=== PATIENT | male | born 1995 | race Caucasian/White ===

== ENCOUNTER 2021-12-17 22:11 | Day surgery (SDC) | payer OTHER ==
[2021-12-17] MEDS ORDERED: GLUCAGON 1 MG/ML VIAL IM STA (23:12)
--- NOTE | 2021-12-17 23:54 | ED Physician Documentation ---
History of Present Illness - Stated complaint Stated Complaint: THROAT PX/ESOPHAGUS PX - Chief complaint Chief Complaint: Heent - Additonal information Additional information: Patient is 26-year-old male presenting to the emergency department with esophageal impaction. Reports was eating steak earlier today.[place] a bolus of food to become impacted in his esophagus. Since that time has not been able to tolerate solids, liquids and has been spitting up his own saliva. Reports has had similar symptoms in the past but that they have always been short-lived and resolved spontaneously at home. Did try jumping up and down before coming in. Review of Systems Unable to obtain: Unresponsive Ten Systems: 10 systems reviewed and negative Constitutional: denies: Fever Eyes: denies: Loss of vision Ears: denies: Loss of hearing Nose: denies: Rhinorrhea / runny nose Throat: denies: Dental pain / toothache Cardiac: denies: Chest pain / pressure Respiratory: denies: Dyspnea GI: denies: Abdominal Pain : denies: Dysuria PD PAST MEDICAL HISTORY - Present Medications Home Medications: Ambulatory Orders Medication Instructions Recorded Confirmed No Known Home Medications 12/17/21 12/17/21 - Allergies Allergies/Adverse Reactions: Allergies Allergy/AdvReac Type Severity Reaction Status Date / Time No Known Drug Allergies Allergy Verified 12/17/21 22:16 PD ED PE NORMAL - Vitals Vital signs reviewed: Yes - General General: Alert and oriented X 3 - HEENT HEENT: Atraumatic - Neck Neck: Supple, no meningeal sign - Cardiac Cardiac: RRR - Respiratory Respiratory: No respiratory distress - Abdomen Abdomen: Normal bowel sounds - Male Male : Deferred - Rectal Rectal: Deferred - Back Back: No CVA TTP - Derm Derm: Normal color Results - Vitals Vitals: Vital Signs - 24 hr 12/17/21 12/18/21 12/18/21 22:14 01:12 01:15 Temperature 36.3 C L 36.8 C 36.8 C Heart Rate 77 77 73 Respiratory 16 18 15 Rate Blood Pressure 134/74 H 133/89 H 122/77 O2 Saturation 100 98 97 12/18/21 12/18/21 12/18/21 01:25 01:30 01:35 Temperature 36.7 C 36.8 C 36..8 C L Heart Rate 70 74 66 Respiratory 14 20 14 Rate Blood Pressure 121/73 118/76 119/71 O2 Saturation 99 99 98 12/18/21 12/18/21 01:40 01:45 Temperature 36.9 C 36.9 C Heart Rate 71 61 Respiratory 15 14 Rate Blood Pressure 119/76 114/72 O2 Saturation 66 L 99 Oxygen O2 Source Room air - Labs Labs: Laboratory Tests 12/17/21 12/17/21 12/17/21 23:43 23:50 23:50 WBC 6.8 RBC 4.99 Hgb 16.7 Hct 45.0 MCV 90.2 MCH 33.5 H MCHC 37.1 H RDW 11.9 L Plt Count 234 MPV 9.2 Neut # (Auto) 4.8 Lymph # (Auto) 1.2 L [place] # (Auto) 0.6 Eos # (Auto) 0.2 Baso # (Auto) 0.0 Absolute Nucleated RBC 0.00 Nucleated RBC % 0.0 Sodium 136 Potassium 3.3 L Chloride 102 Carbon Dioxide 25 Anion Gap 9.0 BUN 18 Creatinine 1.0 Estimated GFR (MDRD) 91 Glucose 173 H Calcium 9.6 SARS-CoV-2 (PCR) NOT DETECTED PD MEDICAL DECISION MAKING - ED course Complexity details: reviewed results, d/w patient, d/w consumer services consultant ED course: Patient 26-year-old male with esophageal impaction. Afebrile, hemodynamically stable. Patient protecting airway, using emesis bags to help manage his own secretions. Given glucagon on arrival. Encouraged some physical activity to help facilitate passage of esophageal mass. Patient was also given carbonated liquid to sip however he was intolerant of this as it made him feel as though he was choking. Care was discussed with Dr. Antoine,General surgery who graciously agrees to evaluate the patient in the emergency department for possible endoscopy. Update: Patient taken to the OR at 00 40 hours. Ultimately admitted to the floor, presumably under 's service. Departure - Departure Disposition: ED Transfer to [facility] Clinical Impression: Esophageal obstruction due to food impaction Discharge Date/Time: 12/18/21 00:35
[2021-12-18 00:01] LABS: BASOPHILS % (AUTO) 0.4 %; EOSINOPHILS # (AUTO) 0.2 10^3/uL (0.0-0.7); EOSINOPHILS % (AUTO) 3.1 %; HGB - HEMOGLOBIN 16.7 g/dL (14.0-18.0); LYMPHOCYTES # (AUTO) 1.2 10^3/uL (1.5-3.5); LYMPHOCYTES % (AUTO) 17.2 %; MEAN CORPUSCULAR HEMOGLOBIN 33.5 pg (27.0-31.0); MEAN CORPUSCULAR HGB CONC 37.1 g/dL (32.0-36.0); MEAN CORPUSCULAR VOLUME 90.2 fL (80.0-94.0); MEAN PLATELET VOLUME 9.2 fL (7.4-11.4); MONOCYTES # (AUTO) 0.6 10^3/uL (0.0-1.0); NEUTROPHILS # (AUTO) 4.8 10^3/uL (1.5-6.6); NEUTROPHILS % (AUTO) 69.7 %; PLT - PLATELET COUNT 234 10^3/uL (130-450); RED BLOOD COUNT 4.99 10^6/uL (4.70-6.10); RED CELL DISTRIBUTION WIDTH 11.9 % (12.0-15.0); WHITE BLOOD COUNT 6.8 x10^3/uL (4.8-10.8)
--- NOTE | 2021-12-18 00:07 | XRAY Report ---
PROCEDURE: Chest 2 View X-Ray INDICATIONS: cough TECHNIQUE: 2 view(s) of the chest. COMPARISON: None. FINDINGS: Surgical changes and devices: None. Lungs and pleura: No pleural effusions or pneumothorax. Lungs are clear. Visualized trachea and sagrario nstem bronchi appear patent. Mediastinum: Mediastinal contours are normal. Heart size is normal. Bones and chest wall: No suspicious bony abnormalities. No radiopaque foreign bodies. Soft tissues appear unremarkable. IMPRESSION: 1. No acute cardiopulmonary disease. Specifically, no lobar atelectasis identified. 2. No radiopaque foreign bodies. Reviewed by: Arun Alejo MD on 12/18/2021 12:06 AM PDT Approved by: Arun Alejo MD on 12/18/2021 12:06 AM PDT Station ID: [id number]
[2021-12-18 00:10] LABS: CALCIUM 9.6 mg/dL (8.5-10.3); POTASSIUM 3.3 mmol/L (3.5-5.0)
--- NOTE | 2021-12-18 00:11 | CONSULTATION NOTE ---
Referring Provider Name of Referring Provider:: Don Painting MD Chief Complaint - Chief Complaint Chief Complaint: Steak stuck in esophagus History of Present Illness - History Obtained From Records Reviewed: Yes History obtained from: Patient Exam Limitations: None - History of Present Illness HPI Comment/Other: I was called by Dr. Painting to evaluate and treat this very pleasant 26-year-old male after he got his steak stuck in his esophagus. He states that it is never happened to this degree previously. He has never had to have a scope to have it removed as it had passed with some effort in the past. He denies any significant medical or surgical history. He denies melena, hematochezia, hematemesis. He is standing and actively hiccuping. Emesis bag is at the ready. 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 : reports: None HEENT: reports: None Psych: reports: None Musculoskeletal: reports: None Derm: reports: None Meds/Allgy - Home Medications Home Medications: Ambulatory Orders Medication Instructions Recorded Confirmed No Known Home Medications 12/17/21 12/17/21 - Allergies Allergies/Adverse Reactions: Allergies Allergy/AdvReac Type Severity Reaction Status Date / Time No Known Drug Allergies Allergy Verified 12/17/21 22:16 Review of Systems - Constitutional Constitutional: denies: Fatigue, Fever, Chills - Eyes Eyes: denies: Pain - Ears, Nose & Throat Ears, Nose & Throat: denies: Ear pain - Cardiovascular Cariovascular: denies: Irregular heart rate, Palpitations, Chest pain - Respiratory Respiratory: denies: Cough, Sputum production, Wheezing - Gastrointestinal Gastrointestinal: reports: Nausea, Vomiting. denies: Abdominal pain, Bloody stools, Mychal blood emesis - Integumentary Integumentary: denies: Rash - Neurological Neurological: denies: General weakness - Psychiatric Psychiatric: denies: Depression, Anxiety, Suicidal Exam - Vital Signs Reviewed Vital Signs: Yes Vital Signs: Vital Signs x48h Temp Pulse Resp BP Pulse Ox 12/17/21 22:14 36.3 C L 77 16 134/74 H 100 - Physical Exam General Appearance: positive: No acute distress (But standing, hiccuping.) Eyes Bilateral: positive: No lid inflammation, Conjunctivae nml, No scleral icterus ENT: positive: No signs of dehydration Neck: positive: Trachea midline Respiratory: positive: Chest non-tender, No respiratory distress, Breath sounds nml Cardiovascular: positive: Regular rate & rhythm, No murmur, No gallop Abdomen: positive: Non-tender, Nml bowel sounds Extremities: positive: Nml appearance, No pedal edema Neurologic/Psychiatric: positive: Oriented x3, Motor nml, Sensation nml, Mood/affect nml Conclusion/Plan - Lab Results Lab results reviewed: Yes Fish Bones: 12/17/21 23:50 - Other Other Results/Comments: Assessment: Esophageal foreign body (steak). Plan: Esophagogastroduodenoscopy with removal of esophageal foreign body. The indications, procedure, alternatives (which have already been tried) and possible complications including but not limited to perforation requiring operative repair, bleeding, and even were fully explained to the patient all questions were answered. Verbal and written consent was obtained. The baljit ent has been and obviously still is n.p.o. Antibiotics are not indicated. I explained following the procedure it is highly likely that he will be sent home. I explained that if there is a stenosis that this will not be dilated tonight but rather should be dilated at a separate time. I asked him to let us know if there is any way we can make his stay at [facility] more comfortable to please let us know. He stated that he would. 30 minutes were employed of [id number] time as well as completion of the chart CPT 92396
[2021-12-18] MEDS ORDERED: MIDAZOLAM 2 MG/2 ML VIAL ONE (00:36)
[2021-12-18] MEDS ORDERED: fentaNYL 100 MCG/2 ML VIAL ONE (00:37)
--- NOTE | 2021-12-18 00:37 | ANESTHESIA ---
Pre-Anesthesia VS, & Labs - Diagnosis food bolus in esophagus - Procedure EGD, removal of food bolus Vital Signs: Temp Pulse Resp BP Pulse Ox 36.3 C L 77 16 134/74 H 100 12/17/21 22:14 12/17/21 22:14 12/17/21 22:14 12/17/21 22:14 12/17/21 22:14 Height: 5 ft 8 in Weight (kg): 68.039 kg Body Mass Index: 22.8 BMI Classification: Healthy weight - NPO Other (ate 9pm) - Lab Results Current Lab Results: Laboratory Tests 12/17/21 23:50: Sodium 136, Potassium 3.3 L, Chloride 102, Carbon Dioxide 25, Anion Gap 9.0, BUN 18, Creatinine 1.0, Estimated GFR (MDRD) 91, Glucose 173 H, Calcium 9.6 12/17/21 23:50: WBC 6.8, RBC 4.99, Hgb 16.7, Hct 45.0, MCV 90.2, MCH 33.5 H, MCHC 37.1 H, RDW 11.9 L, Plt Count 234, MPV 9.2, Neut # (Auto) 4.8, Lymph # (Auto) 1.2 L, [place] # (Auto) 0.6, Eos # (Auto) 0.2, Baso # (Auto) 0.0, Absolute Nucleated RBC 0.00, Nucleated RBC % 0.0 Fish Bones: 12/17/21 23:50 12/17/21 23:50 Home Medications and Allergies Home Medications: Ambulatory Orders No Known Home Medications 12/17/21 No Known Home Medications 12/17/21 Allergies/Adverse Reactions: Allergies Allergy/AdvReac Type Severity Reaction Status Date / Time No Known Drug Allergies Allergy Verified 12/17/21 22:16 Anes History & Medical History - Anesthetic History Anesthesia Complications: reports: No previous complications - Medical History Cardiovascular: reports: None Pulmonary: reports: None Gastrointestinal: reports: None Urinary: reports: None Neuro: reports: None Musculoskeletal: reports: None Endocrine/Autoimmune: reports: None Skin: reports: None Smoking Status: Never smoker History of Cancer?: No Exam General: Alert, Oriented x3, Cooperative, Mild distress Dental: WNL Mouth Opening: Greater than 4 Fingerbreadths Neck Mobility: Normal Mallampati classification: I Thyromental Distance: greater than 6 cm Respiratory: Lungs clear Cardiovascular: Regular rate, Normal S1, Normal S2 Plan Anesthesia Type: General Consent for Procedure(s) Verified and Reviewed: Yes Code Status: Attempt Resuscitation ASA classification: 1-Healthy patient Is this case an emergency?: Yes
[2021-12-18] MEDS ORDERED: ROCURONIUM 50 MG/5 ML VIAL ONE (00:38)
[2021-12-18] MEDS ORDERED: LIDOCAINE-MPF 2% 5 ML VIAL ONE (00:38)
[2021-12-18] MEDS ORDERED: PROPOFOL 200 MG/20 ML VIAL IVP ONE (00:38)
[2021-12-18] MEDS ORDERED: DEXAMETHASONE 4 MG/ML VIAL ONE (01:07)
[2021-12-18] MEDS ORDERED: ONDANSETRON 4 MG/2 ML VIAL ONE (01:07)
[2021-12-18] MEDS ORDERED: ATROPINE ABBOJECT 1 MG/10 ML SYRINGE IVP PRN (01:20)
[2021-12-18] MEDS ORDERED: ePHEDrine 50 MG/ML VIAL IVP PRN (01:20)
[2021-12-18] MEDS ORDERED: fentaNYL 100 MCG/2 ML VIAL IVP PRN (01:20)
[2021-12-18] MEDS ORDERED: HYDROmorphone 0.5 MG/0.5 ML SYRINGE IVP PRN (01:20)
[2021-12-18] MEDS ORDERED: MORPHINE 2 MG/ML CARPUJECT IVP PRN (01:20)
[2021-12-18] MEDS ORDERED: METOCLOPRAMIDE 10 MG/2 ML VIAL IVP PRN (01:20)
[2021-12-18] MEDS ORDERED: NALOXONE 0.4 MG/ML VIAL IVP PRN (01:20)
[2021-12-18] MEDS ORDERED: ONDANSETRON 4 MG/2 ML VIAL IVP PRN (01:20)
[2021-12-18] MEDS ORDERED: LACTATED RINGERS 1,000 ML IV ONE (01:30)
[2021-12-18 01:47] VITALS: BP 114/72
[2021-12-18] MEDS ORDERED: LACTATED RINGERS 1,000 ML IV SCH (02:00)
== END 2021-12-18 06:05 | disposition home or self-care (01) ==
LOC: ED 22:11 → SDS 12-18 00:01 → MS2 12-18 01:36 → SDS 12-18 06:05
PROVIDERS: ATTEND Surgery
DX: T18.128A Food in esophagus causing other injury, initial encounter (principal)
CPT/HCPCS: 36415; 43247; 71046; 80048; 85025; 87635; J7120

== ENCOUNTER 2022-04-29 14:58 | Emergency (ER) | payer OTHER ==
[2022-04-29 15:36] LABS: BASOPHILS % (AUTO) 0.6 %; EOSINOPHILS # (AUTO) 0.4 10^3/uL (0.0-0.7); EOSINOPHILS % (AUTO) 5.6 %; HCT - HEMATOCRIT 49.1 % (42.0-52.0); HGB - HEMOGLOBIN 17.6 g/dL (14.0-18.0); LYMPHOCYTES # (AUTO) 1.9 10^3/uL (1.5-3.5); LYMPHOCYTES % (AUTO) 27.1 %; MEAN CORPUSCULAR HEMOGLOBIN 32.5 pg (27.0-31.0); MEAN CORPUSCULAR HGB CONC 35.8 g/dL (32.0-36.0); MEAN CORPUSCULAR VOLUME 90.6 fL (80.0-94.0); MEAN PLATELET VOLUME 9.4 fL (7.4-11.4); MONOCYTES # (AUTO) 0.7 10^3/uL (0.0-1.0); MONOCYTES % (AUTO) 9.5 %; NEUTROPHILS % (AUTO) 56.9 %; PLT - PLATELET COUNT 261 10^3/uL (130-450); RED BLOOD COUNT 5.42 10^6/uL (4.70-6.10); RED CELL DISTRIBUTION WIDTH 11.4 % (12.0-15.0); WHITE BLOOD COUNT 6.9 x10^3/uL (4.8-10.8)
--- NOTE | 2022-04-29 15:39 | ED Physician Documentation ---
History of Present Illness - Stated complaint Stated Complaint: LT SIDE PX/CONGESTION - Chief complaint Chief Complaint: Abd Pain - History obtained from History obtained from: Patient - History of Present Illness Timing: Today Pain level max: 2 Pain level now: 1 - Additonal information Additional information: Patient is a 26-year-old male who presents to the emergency department stating that he felt mild pain in his left flank but today. He states several weeks ago he was in [email or web address] [employer], he was hospitalized for 3 days for a "kidney infection". He states he had a negative CT scan at that time. No kidney stones. He states that he was on ciprofloxacin at home. He states that today he felt a mild pain in the left flank and was concerned about a recurrence. No dysuria. He states he was tested for sexually transmitted infections and this was negative. No abdominal pain. No nausea or vomiting. He also states that he has a mild sore throat and mild nasal congestion today. Has been around several people at work that are sick. No fevers. No chills. 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 HEENT: None Psych: None Musculoskeletal: None Derm: None - Past Surgical History Past Surgical History: No - Present Medications Home Medications: Ambulatory Orders Medication Instructions Recorded Confirmed No Known Home Medications 12/17/21 04/29/22 - Allergies Allergies/Adverse Reactions: Allergies Allergy/AdvReac Type Severity Reaction Status Date / Time No Known Drug Allergies Allergy Verified 04/29/22 15:05 - Social History Does the pt smoke?: No Smoking Status: Never smoker Does the pt drink ETOH?: Yes Does the pt have substance abuse?: No - Immunizations Immunizations are current?: Yes PD ED PE NORMAL - Vitals Vital signs reviewed: Yes - General General: Alert and oriented X 3, No acute distress, Well developed/nourished - HEENT HEENT: PERRL, Moist mucous membranes, Other (Mild posterior oropharyngeal erythema without tonsillar exudates. Uvula midline. Normal phonation. No trismus.) - Neck Neck: Supple, no meningeal sign, No adenopathy, No JVD, No bruit - Cardiac Cardiac: RRR, No murmur, Strong equal pulses - Respiratory Respiratory: No respiratory distress, Clear bilaterally - Abdomen Abdomen: Soft, Non tender, Non distended - Back Back: No CVA TTP, No spinal TTP - Derm Derm: Warm and dry, No rash - Neuro Neuro: Alert and oriented X 3 - Psych Psych: Normal mood, Normal affect Results - Vitals Vitals: Vital Signs - 24 hr 04/29/22 04/29/22 04/29/22 15:06 15:09 16:22 Temperature 36.7 C 36.7 C Heart Rate 84 84 74 Respiratory 18 18 19 Rate Blood Pressure 98/77 98/77 132/77 H O2 Saturation 98 98 99 Oxygen O2 Source Room air - Labs Labs: Laboratory Tests 04/29/22 04/29/22 04/29/22 15:26 15:28 15:28 WBC 6.9 RBC 5.42 Hgb 17.6 Hct 49.1 MCV 90.6 MCH 32.5 H MCHC 35.8 RDW 11.4 L Plt Count 261 MPV 9.4 Neut # (Auto) 4.0 Lymph # (Auto) 1.9 [place] # (Auto) 0.7 Eos # (Auto) 0.4 Baso # (Auto) 0.0 Absolute Nucleated RBC 0.00 Nucleated RBC % 0.0 Sodium 138 Potassium 3.5 Chloride 101 Carbon Dioxide 27 Anion Gap 10.0 BUN 16 Creatinine 1.0 Estimated GFR (MDRD) 91 Glucose 114 H Calcium 9.4 Total Bilirubin 0.8 AST 20 ALT 16 Alkaline Phosphatase 83 Total Protein 7.9 Albumin 4.6 Globulin 3.3 Albumin/Globulin Ratio 1.4 Lipase 47 Urine Color Urine Clarity Urine pH Ur Specific [place] Urine Protein Urine Glucose (UA) Urine Ketones Urine Occult Blood Urine Nitrite Urine Bilirubin Urine Urobilinogen Ur Leukocyte Esterase Ur Microscopic Review Urine Culture Comments Group A Strep Rapid Negative 04/29/22 15:38 WBC RBC Hgb Hct MCV MCH MCHC RDW Plt Count MPV Neut # (Auto) Lymph # (Auto) [place] # (Auto) Eos # (Auto) Baso # (Auto) Absolute Nucleated RBC Nucleated RBC % Sodium Potassium Chloride Carbon Dioxide Anion Gap BUN Creatinine Estimated GFR (MDRD) Glucose Calcium Total Bilirubin AST ALT Alkaline Phosphatase Total Protein Albumin Globulin Albumin/Globulin Ratio Lipase Urine Color YELLOW Urine Clarity CLEAR Urine pH 6.0 Ur Specific [place] 1.020 Urine Protein NEGATIVE Urine Glucose (UA) NEGATIVE Urine Ketones NEGATIVE Urine Occult Blood TRACE-INTA Urine Nitrite NEGATIVE Urine Bilirubin NEGATIVE Urine Urobilinogen 0.2 (NORMAL) Ur Leukocyte Esterase NEGATIVE Ur Microscopic Review NOT INDICATED Urine Culture Comments NOT INDICATED Group A Strep Rapid PD Medical Decision Making - ED course Complexity details: reviewed results, re-evaluated patient, considered differential, d/w patient Reviewed Lab Results: No acute findings on CBC, your abdominal panel, urinalysis or rapid strep test. All are negative. ED course: 26-year-old male with mild flank pain earlier today. Not having any pain currently. Unclear etiology. Abdomen is soft, nontender nondistended. Labs are reassuring. No indication for emergent CT scan. He did state that he had some redness around the urethral meatus, so a testicular and genital exam was performed. This is normal. No discharge. No erythema. No testicular masses. We [place]. Appears to have a viral upper respiratory infection. Rapid strep is negative. Patient counseled regarding signs and symptoms for which I believe and urgent re-evaluation would be necessary. Patient with good understanding of and agreement to plan and is comfortable going home at this time This document was made in part using voice recognition software. While efforts are made to proofread this document, sound alike and grammatical errors may occur. Departure - Departure Disposition: 01 Home, Self Care Clinical Impression: Viral URI, Flank pain Condition: Good Instructions: ED Viral Syndrome Follow-Up: FLORENCIA Rodrigues [Provider Group] - Within 1 week Comments: Please follow-up with your doctor for further care. There are no acute findings on your laboratory testing today, urinalysis, strep test. Please return if you worsen. There is no evidence of a recurrent kidney infection. Discharge Date/Time: 04/29/22 16:24
[2022-04-29 15:43] LABS: RAPID STREP SCREEN Negative (Negative)
[2022-04-29 15:44] LABS: BILIRUBIN,URINE NEGATIVE (NEGATIVE); GLUCOSE, URINE (UA) NEGATIVE (NEGATIVE); KETONES,URINE (UA) NEGATIVE (NEGATIVE); LEUKOCYTE ESTERASE, URINE NEGATIVE (NEGATIVE); NITRITE,URINE NEGATIVE (NEGATIVE); OCCULT BLOOD,URINE TRACE-INTA (NEGATIVE); PROTEIN,URINE NEGATIVE (NEGATIVE); UROBILINOGEN,URINE 0.2 (NORMAL) E.U./dL (NORMAL)
[2022-04-29 15:48] LABS: CLARITY,URINE CLEAR (CLEAR)
[2022-04-29 15:50] LABS: ALBUMIN 4.6 g/dL (3.2-5.5); ALBUMIN/GLOBULIN RATIO 1.4 (1.0-2.2); BILIRUBIN,TOTAL 0.8 mg/dL (0.2-1.0); CALCIUM 9.4 mg/dL (8.5-10.3); POTASSIUM 3.5 mmol/L (3.5-5.0); TOTAL PROTEIN 7.9 g/dL (6.7-8.2)
[2022-04-29 16:22] VITALS: BP 132/77
== END 2022-04-29 16:24 | disposition home or self-care (01) ==
LOC: ED 14:58
DX: J06.9 Acute upper respiratory infection, unspecified (principal); R10.9 Unspecified abdominal pain
CPT/HCPCS: 36415; 80053; 81001; 81003; 83690; 85025; 87070; 87086; 87430; 99283

== ENCOUNTER 2022-12-26 11:40 | Emergency (ER) | payer OTHER ==
[2022-12-26 11:54] VITALS: O2SAT 100
--- NOTE | 2022-12-26 13:22 | XRAY Report ---
PROCEDURE: Chest 1 View X-Ray INDICATIONS: chest pain TECHNIQUE: One view of the chest was acquired. COMPARISON: None. FINDINGS: Surgical changes and devices: None. Lungs and pleura: No pleural effusions or pneumothorax. Lungs are hyperinflated but clear. Mediastinum: Mediastinal contours appear normal. Heart size is normal. Bones and chest wall: No suspicious bony lesions. Overlying soft tissues appear unremarkable. IMPRESSION: Pulmonary hyperinflation may indicate air trapping or asthma. No pneumothorax. Reviewed by: Kanwal Reyes MD on 12/26/2022 1:20 PM PDT Approved by: Kanwal Reyes MD on 12/26/2022 1:20 PM PDT Station ID: [id number]
[2022-12-26] MEDS ORDERED: ALBUTEROL 1 PUFF INH STA (13:47)
--- NOTE | 2022-12-26 13:50 | ED Physician Documentation ---
History of Present Illness - Stated complaint Stated Complaint: CHEST PX - Chief complaint Chief Complaint: Cardiac - Additonal information Additional information: 27-year-old male presents emergency department for evaluation of chest tightness and discomfort. Is been present for the last 2 days. He does have some mild congestion but no real cough. He is also reporting that he has some vague discomfort in his body with tingling that radiates both up and down his arms legs and into his jaw. He is concerned he could have multiple sclerosis. No history of diabetes, hypertension. Non-smoker. 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 Review of Systems Constitutional: denies: Fever Eyes: reports: Reviewed and negative Nose: denies: Congestion Cardiac: reports: Chest pain / pressure Respiratory: reports: Cough. 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: No - Immunizations Immunizations are current?: Yes PD ED PE NORMAL - General General: Alert and oriented X 3, No acute distress, Well developed/nourished - HEENT HEENT: Atraumatic, Moist mucous membranes - Neck Neck: Supple, no meningeal sign - Cardiac Cardiac: RRR, No murmur - Respiratory Respiratory: No respiratory distress, Clear bilaterally - Abdomen Abdomen: Normal bowel sounds, Soft, Non tender, Non distended - Back Back: No CVA TTP - Derm Derm: Normal color, Warm and dry, No rash - Extremities Extremities: No deformity - Neuro Neuro: Alert and oriented X 3, 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 Relevant findings are: Rate: Rate (enter#) (77) Rhythm: NSR Wiley: Normal Intervals: Normal MO QRS: Normal Ischemia: Normal ST segments Compare to prior EKG: Old EKG unavailable Computer interpretation: Agree with computer - Labs Labs: Laboratory Tests 12/26/22 12/26/22 14:00 14:00 WBC 8.7 RBC 4.99 Hgb 16.2 Hct 44.9 MCV 90.0 MCH 32.5 H MCHC 36.1 H RDW 11.9 L Plt Count 274 MPV 9.2 Neut # (Auto) 6.7 H Lymph # (Auto) 1.3 L Custer # (Auto) 0.5 Eos # (Auto) 0.1 Baso # (Auto) 0.0 Absolute Nucleated RBC 0.00 Nucleated RBC % 0.0 Sodium 136 Potassium 3.8 Chloride 103 Carbon Dioxide 26 Anion Gap 7.0 BUN 11 Creatinine 1.0 Estimated GFR (MDRD) 90 Glucose 87 Calcium 9.6 Total Bilirubin 0.8 AST 16 ALT 11 Alkaline Phosphatase 63 Total Protein 7.2 Albumin 4.8 Globulin 2.4 Albumin/Globulin Ratio 2.0 Lipase 30 - Rads (name of study) cxr Relevant Findings:: Final report received (Pulmonary hyperinflation may indicate air trapping or asthma) PD Medical Decision Making - ED course Complexity details: reviewed results, re-evaluated patient, d/w patient ED course: 27-year-old male presents to the emergency department for evaluation of several days of chest tightness. Typically worse in the morning but improves throughout the day. He has had a mild cough and perhaps some congestion. He also has some various pains that radiate from his back into his arms and legs. He is mo stly concerned he could have multiple sclerosis. On presentation he is alert and very well-appearing. Unremarkable cardiopulmonary auscultation. Vital signs are normal for age. His twelve-lead EKG is interpreted by myself was nonischemic. I did obtain CBC, electrolytes and and found no acute worrisome abnormalities. A chest x-ray suggested hyperinflation of the lungs. Patient has no previous history of asthma and there was no wheeze. However I did give the patient albuterol which she felt reportedly made him no better. At this time a respiratory PCR panel is pending. Patient is discharged home to follow closely with [facility] as well as follow-up the PCR results online. The usual emergent return precautions were discussed for worsening symptoms. Departure - Departure Disposition: Home, Self Care Clinical Impression: Chest pain Qualifiers: Chest pain type: unspecified Qualified Code(s): R07.9 - Chest pain, unspecified Condition: Stable Record reviewed to determine appropriate education?: Yes Comments: Nain you are seen today in the emergency department because for several days you have had some chest discomfort/tightness. Your EKG was normal for age and showed no signs of a heart attack. Your labs today including your electrolytes and CBC were also entirely normal. Your chest x-ray suggested hyperinflation of the lungs which can sometimes be seen in asthma. Your lung sounds however were normal. We did try to give you an albuterol treatment but on reevaluation you did not feel that your symptoms were better. I encourage you to follow-up with a viral testing results online. They should be available in several hours. We will notify you only if you are COVID-19 positive. You expressed concern to us that your symptoms could be due to multiple sclerosis. We are not able to test or evaluate for that in the emergency department. I encourage you to follow closely with [facility] if this remains a concern. Return to the ER for any new or worsening symptoms. Forms: PCP List
[2022-12-26 14:05] LABS: BASOPHILS % (AUTO) 0.5 %; EOSINOPHILS # (AUTO) 0.1 10^3/uL (0.0-0.7); EOSINOPHILS % (AUTO) 1.3 %; HCT - HEMATOCRIT 44.9 % (42.0-52.0); HGB - HEMOGLOBIN 16.2 g/dL (14.0-18.0); LYMPHOCYTES # (AUTO) 1.3 10^3/uL (1.5-3.5); LYMPHOCYTES % (AUTO) 14.7 %; MEAN CORPUSCULAR HEMOGLOBIN 32.5 pg (27.0-31.0); MEAN CORPUSCULAR HGB CONC 36.1 g/dL (32.0-36.0); MEAN PLATELET VOLUME 9.2 fL (7.4-11.4); MONOCYTES # (AUTO) 0.5 10^3/uL (0.0-1.0); MONOCYTES % (AUTO) 6.2 %; NEUTROPHILS # (AUTO) 6.7 10^3/uL (1.5-6.6); PLT - PLATELET COUNT 274 10^3/uL (130-450); RED BLOOD COUNT 4.99 10^6/uL (4.70-6.10); RED CELL DISTRIBUTION WIDTH 11.9 % (12.0-15.0); WHITE BLOOD COUNT 8.7 x10^3/uL (4.8-10.8)
[2022-12-26 14:22] LABS: ALBUMIN 4.8 g/dL (3.2-5.5); BILIRUBIN,TOTAL 0.8 mg/dL (0.2-1.0); CALCIUM 9.6 mg/dL (8.5-10.3); POTASSIUM 3.8 mmol/L (3.5-4.5); TOTAL PROTEIN 7.2 g/dL (6.4-8.9)
[2022-12-26 15:08] LABS: B. PARAPERTUSSIS- RESP PCR PAN NOT DETECTED; B. PERTUSSIS- RESP PCR PANEL NOT DETECTED; C. PNEUMONIAE- RESP PCR PANEL NOT DETECTED; CORONAVIRUS 229E-RESP PCR NOT DETECTED; CORONAVIRUS HKU1-RESP PCR NOT DETECTED; CORONAVIRUS NL63-RESP PCR NOT DETECTED; CORONAVIRUS OC43-RESP PCR NOT DETECTED; HUMAN METAPNEUMOVIRUS NOT DETECTED; INFLUENZA A- RESP PCR PANEL NOT DETECTED; INFLUENZA B - RESP PCR PANEL NOT DETECTED; M. PNEUMONIAE- RESP PCR PANEL NOT DETECTED; PARAINFLUENZA VIRUS 1 NOT DETECTED; PARAINFLUENZA VIRUS 2 NOT DETECTED; PARAINFLUENZA VIRUS 3 NOT DETECTED; PARAINFLUENZA VIRUS 4 NOT DETECTED; RHINOVIRUS/ENTEROVIRUS NOT DETECTED; RSV- RESP PCR PANEL NOT DETECTED; SARS-CoV-2 -RESP PCR PANEL NOT DETECTED
[2022-12-26 15:17] VITALS: BP 123/76
== END 2022-12-26 15:15 | disposition home or self-care (01) ==
LOC: ED 11:40
DX: R07.9 Chest pain, unspecified (principal); Z20.822 Contact with and (suspected) exposure to COVID-19
CPT/HCPCS: 36415; 80053; 83690; 85025; 87633; 93005; 94640; 94664; 99283; 99284

== ENCOUNTER 2023-10-25 14:47 | Outpatient (CLI) | payer OTHER ==
[2023-10-25 22:27] LABS: CHLAMYDIA TRACHOMATIS DNA NEGATIVE (NEGATIVE); NEISSERIA GONORRHOEAE DNA NEGATIVE (NEGATIVE); TRICHOMONAS VAGINALIS DNA NEGATIVE (NEGATIVE)
[2023-10-26 05:18] LABS: HIV SCREEN 4TH GENERATION Non Reactive (Non Reactive); HSV 1 IGG TYPE SPEC <0.91 index (0.00-0.90); HSV 2 IGG TYPE SPEC <0.91 index (0.00-0.90)
[2023-10-26 06:16] LABS: RPR Non Reactive (Non Reactive)
[2023-10-28 02:07] LABS: HCV AB Non Reactive (Non Reactive)
== END 2023-10-25 14:48 | disposition home or self-care (01) ==
LOC: LAB 14:47
PROVIDERS: ATTEND Urology
DX: R30.0 Dysuria (principal); Z86.19 Personal history of other infectious and parasitic diseases
CPT/HCPCS: 36415; 81599; 86592; 86695; 86696; 86803; 87389; 87491; 87591; 87661